=== PATIENT | female | born 1965 | race Caucasian/White ===

== ENCOUNTER 2025-04-19 11:02 | Emergency (ER) | payer SELFPAY ==
[2025-04-19 12:26] LABS: BASOPHILS ABSOLUTE AUTO 0.03 K/uL (0.00-0.10); BASOPHILS PERCENT AUTO 0.5 % (0.1-1.3); EOSINOPHILS ABSOLUTE AUTO 0.10 K/uL (0.00-0.40); EOSINOPHILS PERCENT AUTO 1.7 % (0.0-5.4); IMMATURE GRAN PERCENT AUTO 0.2 % (0.0-0.7); LYMPHOCYTES ABSOLUTE AUTO 0.97 K/uL (0.8-3.3); LYMPHOCYTES PERCENT AUTO 16.5 % (11.4-47.7); MONOCYTES ABSOLUTE AUTO 0.49 K/uL (0.20-0.90); MONOCYTES PERCENT AUTO 8.3 % (3.3-12.6); NEUTROPHILS ABSOLUTE AUTO 4.29 K/uL (1.0-7.6); NEUTROPHILS PERCENT AUTO 72.8 % (40.0-78.1); PLATELET COUNT,PLT 368 K/uL (130-375); RED BLOOD CELL COUNT 3.08 M/uL (3.77-5.24)
[2025-04-19 12:43] LABS: IMMATURE GRAN ABSOLUTE AUTO 0.01 K/uL (0.00-0.23)
[2025-04-19 12:44] LABS: WHITE BLOOD CELL COUNT,WBC 5.9 K/uL (3.2-11.0)
[2025-04-19 12:50] LABS: A/G RATIO 1.1 (1.2-2.2); ALANINE AMINOTRANSFERASE,ALT 31 U/L (12-78); ASPARTATE AMNIOTRANSFERASE,AST 24 U/L (15-37); BILIRUBIN TOTAL 0.3 mg/dL (0.2-1.0); BLOOD UREA NITROGEN,BUN 9 mg/dL (7-18); CARBON DIOXIDE,CO2 26 mmol/L (21-32); CHLORIDE,CL 105 mmol/L (100-108); CREATININE 0.3 mg/dL (0.6-1.0); EST CRCL DRUG DOSING (CG) 178.50 mL/min; ESTIMATED GFR 121 mL/min (>60); GLUCOSE RANDOM 99 mg/dL (74-106); POTASSIUM,K 4.3 mmol/L (3.6-5.2); PROTEIN TOTAL,TP 6.5 g/dL (6.4-8.2); SODIUM,NA 139 mmol/L (140-148); TROPONIN I HIGH SENSITIVITY 4.7 pg/mL (<=60.3)
[2025-04-19] MEDS: Sodium Chloride 0.9% 10 ML Syringe FLUSH ONE (13:47)
[2025-04-19] MEDS: Iopamidol 612 MG/ML 100 ML Bottle IV PRN (13:47)
[2025-04-19 17:47] VITALS: BP 140/81; PULSE 64
== END 2025-04-19 14:47 | disposition home or self-care (01) ==
LOC: JP.ED 11:02
DX: K29.00 Acute gastritis without bleeding (principal); F17.200 Nicotine dependence, unspecified, uncomplicated; Z79.899 Other long term (current) drug therapy; Z90.49 Acquired absence of other specified parts of digestive tract; Z90.710 Acquired absence of both cervix and uterus
CPT/HCPCS: 36415; 74177; 74177-26; 80053; 83605; 84484; 85025; 96360; 96361; 99284; J7030; Q9967